=== PATIENT | male | born 1965 | race Caucasian/White ===

== ENCOUNTER 2017-08-12 11:13 | Emergency (ER) | payer OTHER ==
[~2017-08-12] VITALS: Ht 165.1 cm; Wt 53.8 kg
[2017-08-12 11:25] VITALS: BP 138/92
--- NOTE | 2017-08-12 11:33 | NUR ---
PT AMBULATED TO BED 3
--- NOTE | 2017-08-12 11:40 | NUR ---
PATIENT PRESENTS TO ED WITH c/o productive cough, yellowish green phlegm, bodyaches x 1 wk, anterior chest wall "tightess" x 3 days---mild nausea denies injury/trauma left upper arm paresthesia x 1 wk---full clear speech, denies sob, no emesis, smoke a pack of cigarettes a day . AAOX4 WITH EVEN AND STEADY GAIT; HR EVEN AND REGULAR; PSKIN IS PINK/WARM/DRY; PATIENT STATES CHEST PAIN OF 7/10 AT THIS TIME; VSS; PATIENT POSITIONED FOR COMFORT; HOB ELEVATED; BEDRAILS UP X2; BED DOWN. ER MD MADE AWARE OF PT STATUS.
--- NOTE | 2017-08-12 12:00 | NUR ---
Patient being evaluated by physician at bedside.
[2017-08-12] MEDS ORDERED: NACL 0.9% 1,000 ML IV ONE (12:15)
[2017-08-12] MEDS ORDERED: ALBUTEROL 0.083% 2.5 MG/3 ML NEBU INH ONE (12:15)
[2017-08-12] MEDS ORDERED: ASPIRIN 325 MG TAB PO ONE (12:15)
[2017-08-12] MEDS ORDERED: LORazepam 2 MG/ML VIAL IVP ONE (12:15)
[2017-08-12] MEDS ORDERED: IPRATROPIUM 0.02% 0.5 MG/2.5 ML NEBU INH ONE (12:15)
--- NOTE | 2017-08-12 12:23 | NUR ---
XRAY AT BEDSIDE
--- NOTE | 2017-08-12 12:50 | NUR ---
RT AT BEDSIDE
--- NOTE | 2017-08-12 12:52 | NUR ---
PATIENT AWAKE, ALERT. TX GIVEN. PATIENT STATES NO SOB OR RESPIRATORY DISTRESS.
[2017-08-12 12:55] LABS: BASOPHILS # (AUTO) 0.3 K/uL (0.00-0.22); BASOPHILS % (AUTO) 3.6 % (0.0-2.0); EOSINOPHILS # (AUTO) 0.2 K/uL (0-0.4); EOSINOPHILS % (AUTO) 2.5 % (0.0-4.0); HEMATOCRIT 50.1 % (36-52); HEMOGLOBIN 16.1 g/dL (12.0-18.0); LYMPHOCYTES # (AUTO) 2.2 K/uL (2.0-11.5); LYMPHOCYTES % (AUTO) 25.6 % (20.5-51.1); MEAN CORPUSCULAR HEMOGLOBIN 29 pg (27-31); MEAN CORPUSCULAR HGB CONC 32 g/dL (33-37); MEAN CORPUSCULAR VOLUME 91 fL (80-94); MONOCYTES # (AUTO) 0.7 K/uL (0.8-1.0); MONOCYTES % (AUTO) 7.9 % (1.7-9.3); NEUTROPHILS # (AUTO) 5.3 K/uL (1.8-7.7); NEUTROPHILS % (AUTO) 60.4 % (42.2-75.2); PLATELET COUNT (AUTO) 378 K/uL (140-450); RED BLOOD CELL COUNT(AUTO) 5.51 MIL/uL (4.20-6.10); RED CELL DISTRIBUTION WIDTH 13.3 % (11.6-13.7); WHITE BLOOD COUNT (AUTO) 8.7 K/uL (4.8-10.8)
[2017-08-12 12:57] LABS: ANION GAP 8.6 (8-16); CARBON DIOXIDE 30.4 mmol/L (21-32); CREATININE 0.9 mg/dL (0.7-1.3)
[2017-08-12 13:03] LABS: ALBUMIN 3.9 g/dL (3.4-5.0); TOTAL BILIRUBIN 0.3 mg/dL (0.0-1.0)
[2017-08-12 13:05] LABS: PROTHROMBIN TIME 9.3 secs (10.8-13.4)
[2017-08-12 13:20] LABS: D-DIMER < 100 ng/ml (0-400)
--- NOTE | 2017-08-12 13:50 | NUR ---
PT IS ASLEEP IN BED, NO S/S OF DISTRESS, VSS.
[2017-08-12 14:46] VITALS: BP 131/86
--- NOTE | 2017-08-12 14:46 | NUR ---
Patient discharged with v/s stable. Written and verbal after care instructions given and explained. Patient alert, oriented and verbalized understanding of instructions. Ambulatory with steady gait. All questions addressed prior to discharge. ID band removed. Patient advised to follow up with PMD. Rx of MOTRIN, AZITHROMYCIN, PROMETHAZINE DM given. Patient educated on indication of medication including possible reaction and side effects. Opportunity to ask questions provided and answered.
== END 2017-08-12 14:46 | disposition home or self-care (01) ==
LOC: MED 11:13
DX: J44.9 Chronic obstructive pulmonary disease, unspecified (principal); F17.210 Nicotine dependence, cigarettes, uncomplicated; Z71.6 Tobacco abuse counseling
CPT/HCPCS: 36415; 71045; 80053; 83880; 84484; 85025; 85379; 85610; 85730; 93005; 94640; 96361; 96374; 99285; J2060; J7030; J7613; J7644; Q0092

== ENCOUNTER 2021-06-03 21:17 | Emergency (ER) | payer OTHER ==
[~2021-06-03] VITALS: Ht 167.6 cm; Wt 63.5 kg
[2021-06-03 21:42] VITALS: BP 125/85
--- NOTE | 2021-06-03 22:07 | NUR ---
PT BROUGHT TO BED [address] [facility]
--- NOTE | 2021-06-03 22:20 | NUR ---
56 YO M BIBA FROM HOME WITH C/C OF 6/10 SUDDEN ONSET BILAT CHEST PAIN AT REST, PT TOOK 4 BABY ASPIRIN WITH NO RELIEF. EMS REPORTS PT HAD ONE EPISODE OF N/V AND APPEARED PALE. MEDICS GAVE 4MG ZOFRAN OTD AND NITRO 0.4MG WITH RELIEF. EMS ESTABLISHED 20G TO LEFT AC. AT THIS TIME PT STATES HE HAS 2/10 LEFT SIDED CHEST PAIN, NO SOB, NO N/V AND STATES HE FEELS BETTER AT THIS TIME. VSS. PT IS IN STABLE CONDITION. BED LOCKED IN LOWEST POSITION, SIDE RAILS X2 FOR SAFETY. PT IN GOWN AND ON [employer]NA[employer]. NO PMH DENIES RX AND ALLERGIES.
[2021-06-03 22:49] LABS: BASOPHILS # (AUTO) 0.1 K/uL (0.00-0.22); BASOPHILS % (AUTO) 0.7 % (0.0-2.0); EOSINOPHILS % (AUTO) 0.2 % (0.0-4.0); HEMATOCRIT 45.9 % (36-52); HEMOGLOBIN 15.1 g/dL (12.0-18.0); LYMPHOCYTES # (AUTO) 1.2 K/uL (2.0-11.5); LYMPHOCYTES % (AUTO) 9.3 % (20.5-51.1); MEAN CORPUSCULAR HEMOGLOBIN 30 pg (27-31); MEAN CORPUSCULAR HGB CONC 33 g/dL (33-37); MEAN CORPUSCULAR VOLUME 90.5 fL (80-94); MONOCYTES # (AUTO) 0.5 K/uL (0.8-1.0); MONOCYTES % (AUTO) 3.7 % (1.7-9.3); NEUTROPHILS # (AUTO) 11.1 K/uL (1.8-7.7); NEUTROPHILS % (AUTO) 86.1 % (42.2-75.2); PLATELET COUNT (AUTO) 310 K/uL (140-450); RED BLOOD CELL COUNT(AUTO) 5.07 MIL/uL (4.20-6.10); WHITE BLOOD COUNT (AUTO) 12.9 K/uL (4.8-10.8)
[2021-06-03] MEDS ORDERED: NACL 0.9% 1,000 ML IV ONE (22:50)
--- NOTE | 2021-06-03 22:58 | NUR ---
PT AMBULATED TO WITH STEADY GAIT TO GET CLEANED UP.
--- NOTE | 2021-06-03 23:08 | NUR ---
PT IS BACK IN BED AND PLACED ON MONITOR.
[2021-06-03 23:22] LABS: ALBUMIN 3.8 g/dL (3.4-5.0); ANION GAP 10.5 (8-16); CARBON DIOXIDE 29.3 mmol/L (21-32); CREATININE 1.1 mg/dL (0.6-1.3); POTASSIUM 3.8 mmol/L (3.5-5.1); TOTAL BILIRUBIN 0.2 mg/dL (0.0-1.0)
--- NOTE | 2021-06-03 23:32 | NUR ---
PT IS LAYING BACK IN BED, EYES CLOSED, OPENS TO SOUNDS. EQUAL RISE AND FALL OF CHEST WALL. VSS. PT IS IN STABLE CONDITION. BED LOCKED IN LOWEST POSITION, SIDE RAILS X2 FOR SAFETY.
--- NOTE | 2021-06-03 23:39 | NUR ---
SWABS COLLECTED AND GIVEN TO MADDY FROM LAB.
[2021-06-04] MEDS ORDERED: NACL 0.9% 1,000 ML IV ONE (02:15)
[2021-06-04] MEDS ORDERED: NITROGLYCERIN 0.4 MG TAB SL ONE (02:15)
[2021-06-04] MEDS ORDERED: ALUMINUM HYD/MAG/SIMETHICONE 30 ML, DICYCLOMINE HCL LIQUID 20 MG, LIDOCAINE VISCOUS 2% ... PO ONE ×3 (02:20)
[2021-06-04] MEDS ORDERED: DICYCLOMINE HCL LIQUID 10 MG/5 ML UDC ONE (02:24)
[2021-06-04] MEDS ORDERED: ALUMINUM HYD/MAG/SIMETHICONE 30 ML UDC ONE (02:24)
[2021-06-04 02:35] VITALS: BP 112/79
--- NOTE | 2021-06-04 02:35 | NUR ---
Patient discharged with v/s stable. Written and verbal after care instructions given and explained. Patient verbalized understanding. Ambulatory with steady gait. All questions addressed prior to discharge. Advised to follow up with PMD.
== END 2021-06-04 02:35 | disposition home or self-care (01) ==
LOC: MED 21:17
DX: U07.1 COVID-19 (principal); R42 Dizziness and giddiness; R07.89 Other chest pain; R12 Heartburn; F17.210 Nicotine dependence, cigarettes, uncomplicated
CPT/HCPCS: 36415; 71045; 80053; 83880; 84484; 85025; 87426; 93005; 96372; 99285; J7030; U0003